=== PATIENT | female | born 1985 ===

== ENCOUNTER 2018-07-15 15:40 | Emergency (ER) | payer OTHER, SELFPAY ==
[2018-07-15 15:48] VITALS: RESP 18
[2018-07-15] MEDS ORDERED: Oxycodone/Acetaminophen 5/325 mg Tab PO ONE (16:10)
--- NOTE | 2018-07-15 16:20 | ED PDOC ---
Upper Extremity Pain/Injury Time Seen by Provider: 07/15/18 16:05 Chief Complaint (Nursing): Finger,Hand,&Wrist Chief Complaint (Provider): Finger,Hand,&Wrist History Per: Patient History/Exam Limitations: no limitations Onset/Duration Of Symptoms: Mins Current Symptoms Are (Timing): Still Present Additional Complaint(s): 32 y/o female presents to the ED for evaluation of a left hand injury, onset prior to arrival. Patient reports of accidentally slamming her left hand, more specifically 3rd digit, to the door earlier today. Patient notes pain to the entire hand. PMD: no provider Past Medical History Reviewed: Historical Data, Nursing Documentation, Vital Signs Vital Signs: Last Vital Signs Temp 98.2 F 07/15/18 15:45 Pulse 82 07/15/18 15:45 Resp 18 07/15/18 15:45 BP 126/81 07/15/18 15:45 Pulse Ox 99 07/15/18 15:45 - Medical History PMH: No Chronic Diseases - Surgical History Surgical History: No Surg Hx - Family History Family History: States: Unknown Family Hx - Home Medications Home Medications: Ambulatory Orders Medication Instructions Recorded Cephalexin [Keflex] 500 mg PO QID #20 capsule 07/15/18 Ibuprofen [Motrin] 600 mg PO Q8 PRN #21 tab 07/15/18 oxyCODONE/Acetaminophen [Percocet 1 ea PO Q6 PRN #15 tab 07/15/18 5/325 mg Tab] - Allergies Allergies/Adverse Reactions: Allergies Allergy/AdvReac Type Severity Reaction Status Date / Time No Known Allergies Allergy Verified 07/15/18 15:46 Review of Systems ROS Statement: Except As Marked, All Systems Reviewed And Found Negative Musculoskeletal: Positive for: Hand Pain (left hand injury) Physical Exam - Reviewed Nursing Documentation Reviewed: Yes Vital Signs Reviewed: Yes - Physical Exam Appears: Positive for: Uncomfortable Extremity: Positive for: Tenderness (tenderness along 3rd, 4th and 5th digit. ), Deformity (left third digit with nail avulsed noted. In moderate bleeding) - ECG O2 Sat by Pulse Oximetry: 99 (RA) Pulse Ox Interpretation: Normal - Progress ED Course And Treament: xry of hand: (+) fx distal tuft third digit. d/w Dr. Guillermo who recommends surgicel over wound and f/u outpatient in office. Ancef 1 gm ivx 1 dose Digital block using 7 ml 1%lidocaine. Surgicel placed on wound. Patient's tetanus is up to date. Medical Decision Making Medical Decision Making: Time: 1610 Plan: -- Percocet 5/325 mg 1 Tab PO -- Hand Left 3 Views XR [id number] Conrad who suggests Surgacel and outpatient followup. Scribe Attestation: Documented by Rocky Pearce, acting as a scribe Jodi Benson PA-C. Provider Scribe Attestation: All medical record entries made by the Scribe were at my direction and personally dictated by me. I have reviewed the chart and agree that the record accurately reflects my personal performance of the history, physical exam, medical decision making, and the department course for this patient. I have also personally directed, reviewed, and agree with the discharge instructions and disposition. Disposition - Clinical Impression Clinical Impression: Nailbed injury, Fracture of distal phalanx of finger - Patient ED Disposition Is Patient to be Admitted: No - Disposition Referrals: Petr Guillermo MD [Staff Provider] - Disposition: Routine/Home Disposition Time: 20:24 Condition: FAIR Additional Instructions: [facility] CON [facility] EN 48 HOURS PARA CHEQUAR Prescriptions: Cephalexin [Keflex] 500 mg PO QID #20 capsule Ibuprofen [Motrin] 600 mg PO Q8 PRN #21 tab PRN Reason: Pain, Severe (8-10) oxyCODONE/Acetaminophen [Percocet 5/325 mg Tab] 1 ea PO Q6 PRN #15 tab PRN Reason: Pain, Moderate (4-7) Instructions: Finger Fracture (DC), Nail Avulsion (DC) Print Language: KOSOVAN
[2018-07-15] MEDS ORDERED: Oxycodone/Acetaminophen 5/325 mg Tab ONE (16:21)
[2018-07-15] MEDS ORDERED: Lidocaine 2% Inj (20ml) INFIL ONE (16:53)
[2018-07-15] MEDS ORDERED: Lidocaine Hydrochloride 1% 10 ML ONE (16:58)
[2018-07-15] MEDS ORDERED: ceFAZolin IV 1 gm in Dextrose 1 GM/50 ML BAG IVPB ONE (17:35)
[2018-07-15] MEDS ORDERED: Cellulose Hemostat 2X3 Sheet TP ONE (17:41)
[2018-07-15] MEDS ORDERED: Lidocaine 1% (10 ml) Inj INFIL ONE (17:45)
[2018-07-15] MEDS ORDERED: ceFAZolin 1 GM in Sodium Chloride 0.9% 100 ML IVPB SCH (18:30)
[2018-07-15 20:13] VITALS: BP 113/74; PULSE 71; TEMP 98.4
[2018-07-15 20:23] VITALS: O2SAT 99
--- NOTE | 2018-07-16 13:13 | RAD ---
PROCEDURE: Left Hand Radiographs. HISTORY: HAND INJURY COMPARISON: None. FINDINGS: BONES: Crush injury resulting and comminuted fracture distal tuft 3rd digit. There is a large avulsed fragment. JOINTS: Normal. No osteoarthritic changes. SOFT TISSUES: Normal. No visualized radiopaque foreign body. OTHER FINDINGS: None. IMPRESSION: Acute fracture distal tuft left 3rd digit. Concordant results with the preliminary interpretation rendered by the emergency department physician procedure.
== END 2018-07-15 20:38 | disposition home or self-care (01) ==
LOC: H.ER 15:40
DX: S62.603A Fracture of unspecified phalanx of left middle finger, initial encounter for closed fracture (principal); S61.303A Unspecified open wound of left middle finger with damage to nail, initial encounter; W23.0XXA Caught, crushed, jammed, or pinched between moving objects, initial encounter; Y92.89 Other specified places as the place of occurrence of the external cause
CPT/HCPCS: 73130; 96365; 99284; J0690

== ENCOUNTER 2018-07-17 10:57 | Emergency (ER) | payer OTHER ==
[2018-07-17 11:02] VITALS: BMI 28.0
[2018-07-17 11:03] VITALS: BP 119/84; PULSE 74; RESP 20; TEMP 98.3; O2SAT 100
--- NOTE | 2018-07-17 11:49 | ED PDOC ---
Upper Extremity Pain/Injury Time Seen by Provider: 07/17/18 11:17 Chief Complaint (Provider): wound check History Per: Patient Additional Complaint(s): 32 y/o F with no significant PMH who presents to ED for wound evaluation after having Left 3rd digit distal fracture with nail bed avulsion from door slamming on her finger 2 days ago. Pt presented to ED on 07/15 and, after speaking with Dr. Guillermo (hand surgeon), had surgicel placed on finger and was advised to follow up as outpatient. Pt has been unable to obtain appointment with hand surgeon after calling several times. She continues to have significant pain with some relief with Percocet and Ibuprofen. Past Medical History Reviewed: Historical Data, Nursing Documentation, Vital Signs Vital Signs: Last Vital Signs Temp 98.3 F 07/17/18 11:02 Pulse 74 07/17/18 11:02 Resp 20 07/17/18 11:02 BP 119/84 07/17/18 11:02 Pulse Ox 100 07/17/18 11:02 - Medical History PMH: No Chronic Diseases - Family History Family History: States: Unknown Family Hx - Home Medications Home Medications: Ambulatory Orders Medication Instructions Recorded Cephalexin [Keflex] 500 mg PO QID #20 capsule 07/15/18 Ibuprofen [Motrin] 600 mg PO Q8 PRN #21 tab 07/15/18 oxyCODONE/Acetaminophen [Percocet 1 ea PO Q6 PRN #15 tab 07/15/18 5/325 mg Tab] - Allergies Allergies/Adverse Reactions: Allergies Allergy/AdvReac Type Severity Reaction Status Date / Time No Known Allergies Allergy Verified 07/15/18 15:46 Physical Exam - Reviewed Nursing Documentation Reviewed: Yes Vital Signs Reviewed: Yes - Physical Exam Appears: Positive for: Uncomfortable Extremity: Positive for: Tenderness (+ ecchymosis and tenderness distal to 3rd MCP ), Capillary Refill (< 2 sec), Other (dressing removed but surgicel left in place as instructed by Dr. Guillermo. No active bleeding noted. Unable to assess wound due to Surgicel. ). Negative for: Normal ROM (decreased flexion and extension at 3rd PIP and DIP due to pain. ) Neurologic/Psych: Positive for: Alert, Oriented - ECG O2 Sat by Pulse Oximetry: 100 Medical Decision Making Medical Decision Making: I spoke with Dr. Guillermo who explained that patient should go directly to his [place] offce where he will be awaiting her arrival for re-assessment of wound/fracture. I explained to patient in [place] that she should follow up directly after discharge from ED and she demonstrated understanding. She was advised to continue pain medications and antibiotic as prescribed. Disposition - Clinical Impression Clinical Impression: Encounter for wound re-check - Patient ED Disposition Is Patient to be Admitted: No Counseled Patient/Family Regarding: Need For Followup - Disposition Referrals: Petr Guillermo MD [Staff Provider] - Disposition: Routine/Home Disposition Time: 11:55 Condition: STABLE Additional Instructions: Follow up with Dr. Petr Guillermo at [address] [place] [address] immediately after leaving ER[address] Dr. Guillermo will be waiting for you. Continue pain medications as needed as prescribed. You may use the same phone number as given for Dr. Guillermo's other office. Forms: [employer]! (Gu[place]alan) Print Language: CROATIAN
== END 2018-07-17 11:55 | disposition home or self-care (01) ==
LOC: H.ER 10:57
DX: Z48.00 Encounter for change or removal of nonsurgical wound dressing (principal)